=== PATIENT | female | born 1990 | race Hispanic/Latino ===

== ENCOUNTER 2021-12-28 07:07 | Observation (INO) | payer BC ==
[~2021-12-28] VITALS: Ht 160 cm; Wt 94.8 kg
[2021-12-28 07:12] VITALS: BP 118/68
[2021-12-28 08:44] LABS: APPEARANCE,URINE CLOUDY (CLEAR); BILIRUBIN,URINE NEGATIVE (NEGATIVE); COLOR,URINE LIGHT-YELLOW (YELLOW); GLUCOSE, URINE (UA) NEGATIVE (NEGATIVE); KETONES,URINE NEGATIVE (NEGATIVE); LEUKOCYTE ESTERASE ,URINE 250 Leu/uL (NEGATIVE); NITRATE,URINE NEGATIVE (NEGATIVE); OCCULT BLOOD,URINE NEGATIVE (NEGATIVE); PH,URINE 6.5 (5.0-8.0); PROTEIN,URINE NEGATIVE (NEGATIVE); UROBILINOGEN,URINE 0.2 mg/dL (0.2-1.0)
[2021-12-28 09:08] LABS: BACTERIA,URINE MOD /HPF (None Seen); MUCUS,URINE RARE LPF (None Seen); RBC,URINE 0-1 /HPF (0-1); SQUAMOUS EPITHELIAL CELL,UR MANY /HPF (0-2)
[2021-12-28] MEDS ORDERED: PROMETHAZINE HCL 25 MG/ML 1ML AMPULE IM ONE (09:30)
[2021-12-28] MEDS ORDERED: BUTALB/ACETAMINOPHEN/CAFFEINE 1 EACH TABLET PO SCH (09:30)
== END 2021-12-28 10:08 | disposition home or self-care (01) ==
LOC: EDH 07:07 → LDH 07:08
PROVIDERS: ADMIT Obstetrics & Gynecology; ATTEND Obstetrics & Gynecology
DX: O26.893 Other specified pregnancy related conditions, third trimester (principal); Z20.822 Contact with and (suspected) exposure to COVID-19; R51.9 Headache, unspecified; Z3A.34 34 weeks gestation of pregnancy
CPT/HCPCS: 96372; 87088; 87804 ×2; 81001; 87635; G0378 ×2; C9803; J2550

== ENCOUNTER 2022-01-13 16:19 | Observation (INO) | payer BC ==
[~2022-01-13] VITALS: Ht 160 cm; Wt 97.1 kg
[2022-01-13 16:25] VITALS: BP 138/89
[2022-01-13 17:15] LABS: BASOPHILS % (AUTO) 0.2 % (0.0-5.0); EOSINOPHILS % (AUTO) 0.3 % (0.0-8.0); HEMATOCRIT 28.1 % (36-48); LYMPHOCYTES % (AUTO) 19.2 % (21.0-51.0); MEAN CORPUSCULAR HEMOGLOBIN 30.7 pg (27.0-33.0); MEAN CORPUSCULAR HGB CONC 34.9 g/dL (32.0-36.0); MEAN CORPUSCULAR VOLUME 88.1 fL (79-99); MONOCYTES % (AUTO) 7.6 % (3.0-13.0); NEUTROPHILS % (AUTO) 72.3 % (40.0-77.0); PLATELET COUNT (AUTO) 250 K/uL (130-400); RED BLOOD CELL COUNT(AUTO) 3.19 MIL/uL (4.00-5.50); RED CELL DISTRIBUTION WIDTH 12.6 % (11.0-15.5); WHITE BLOOD COUNT (AUTO) 11.5 K/uL (4.8-10.8)
[2022-01-13 17:16] LABS: APPEARANCE,URINE CLEAR (CLEAR); BILIRUBIN,URINE NEGATIVE (NEGATIVE); COLOR,URINE COLORLESS (YELLOW); GLUCOSE, URINE (UA) NEGATIVE (NEGATIVE); KETONES,URINE NEGATIVE (NEGATIVE); LEUKOCYTE ESTERASE ,URINE NEGATIVE Leu/uL (NEGATIVE); NITRATE,URINE NEGATIVE (NEGATIVE); OCCULT BLOOD,URINE NEGATIVE (NEGATIVE); PROTEIN,URINE NEGATIVE (NEGATIVE); UROBILINOGEN,URINE 0.2 mg/dL (0.2-1.0)
[2022-01-13 17:29] LABS: CREATININE 0.8 mg/dL (0.5-1.5); POTASSIUM 3.6 mmol/L (3.5-5.1)
[2022-01-13 17:30] LABS: INR 0.93 (0.85-1.15); PROTHROMBIN TIME 9.5 SEC (9.6-11.6)
[2022-01-13 17:32] LABS: PARTIAL THROMBOPLASTIN TIME 26.8 SEC (26.3-35.5)
[2022-01-13 17:33] LABS: ALBUMIN 2.3 g/dL (3.5-5.0); TOTAL PROTEIN, SERUM 6.5 g/dL (6.0-8.3); URIC ACID 3.9 mg/dL (2.6-7.2)
== END 2022-01-13 18:55 | disposition home or self-care (01) ==
LOC: EDH 16:19 → LDH 16:20
PROVIDERS: ADMIT Obstetrics & Gynecology; ATTEND Obstetrics & Gynecology
DX: O14.93 Unspecified pre-eclampsia, third trimester (principal); Z3A.36 36 weeks gestation of pregnancy
CPT/HCPCS: 59025; 84550; 80053; 85025; 85384; 85610; 85730; 81003; 36415; 76805; G0378 ×2; G0379

== ENCOUNTER 2022-01-20 16:16 | Observation (INO) | payer BC ==
[~2022-01-20] VITALS: Ht 160 cm; Wt 99.8 kg
[2022-01-20 17:01] LABS: APPEARANCE,URINE CLEAR (CLEAR); BILIRUBIN,URINE NEGATIVE (NEGATIVE); COLOR,URINE COLORLESS (YELLOW); GLUCOSE, URINE (UA) NEGATIVE (NEGATIVE); KETONES,URINE NEGATIVE (NEGATIVE); LEUKOCYTE ESTERASE ,URINE NEGATIVE Leu/uL (NEGATIVE); NITRATE,URINE NEGATIVE (NEGATIVE); OCCULT BLOOD,URINE SMALL (NEGATIVE); PH,URINE 6.5 (5.0-8.0); PROTEIN,URINE NEGATIVE (NEGATIVE); UROBILINOGEN,URINE 0.2 mg/dL (0.2-1.0)
[2022-01-20 17:04] LABS: MUCUS,URINE RARE LPF (None Seen); RBC,URINE 0-1 /HPF (0-1); SQUAMOUS EPITHELIAL CELL,UR RARE /HPF (0-2)
[2022-01-20 17:34] LABS: BASOPHILS % (AUTO) 0.3 % (0.0-5.0); EOSINOPHILS % (AUTO) 0.3 % (0.0-8.0); HEMATOCRIT 25.8 % (36-48); LYMPHOCYTES % (AUTO) 20.3 % (21.0-51.0); MEAN CORPUSCULAR HEMOGLOBIN 30.2 pg (27.0-33.0); MEAN CORPUSCULAR HGB CONC 34.1 g/dL (32.0-36.0); MEAN CORPUSCULAR VOLUME 88.7 fL (79-99); MONOCYTES % (AUTO) 7.3 % (3.0-13.0); NEUTROPHILS % (AUTO) 71.3 % (40.0-77.0); PLATELET COUNT (AUTO) 244 K/uL (130-400); RED BLOOD CELL COUNT(AUTO) 2.91 MIL/uL (4.00-5.50); RED CELL DISTRIBUTION WIDTH 12.9 % (11.0-15.5); WHITE BLOOD COUNT (AUTO) 11.1 K/uL (4.8-10.8)
[2022-01-20 17:43] LABS: CREATININE 0.8 mg/dL (0.5-1.5); POTASSIUM 3.6 mmol/L (3.5-5.1)
[2022-01-20 17:45] LABS: INR 0.93 (0.85-1.15); PROTHROMBIN TIME 9.5 SEC (9.6-11.6)
[2022-01-20 17:46] LABS: PARTIAL THROMBOPLASTIN TIME 26.8 SEC (26.3-35.5)
[2022-01-20 17:48] LABS: ALBUMIN 2.1 g/dL (3.5-5.0); URIC ACID 4.4 mg/dL (2.6-7.2)
[2022-01-20 21:48] VITALS: BP 141/82
[2022-01-20] MEDS ORDERED: CITRIC ACID/SODIUM CITRATE 30 ML UDCUP PO SCH (22:00)
[2022-01-20] MEDS ORDERED: PHARMACY COMMUNICATION MISC SCH (22:00)
[2022-01-20 22:18] VITALS: BP 171/91
[2022-01-20 22:48] VITALS: BP 141/82
[2022-01-20 23:30] VITALS: BP 136/85
[2022-01-21 03:17] VITALS: BP 124/80
[2022-01-21] MEDS ORDERED: PANTOPRAZOLE 40 MG TAB DR PO SCH (09:00)
[2022-01-21 16:56] LABS: CREATININE,SERUM FOR CRCL 0.8 mg/dL (0.6-1.3)
[2022-01-21 16:57] LABS: COLLECTION PERIOD,URINE 24 HR; TOTAL VOLUME 24HRS,URINE 3200 mL
[2022-01-21 17:44] LABS: TPROTEIN TIMED,URINE 4 mg/dL; TPROTEIN U,24HR CALC 128 mg/24HR (0-165)
[2022-01-25] MEDS ORDERED: OMEP20TA2 PO (00:05)
[2022-01-25] MEDS ORDERED: PREN1TAB80 PO (00:05)
== END 2022-01-21 17:00 | disposition home or self-care (01) ==
LOC: LDH 16:16 → WSH 19:55
PROVIDERS: ADMIT Obstetrics & Gynecology; ATTEND Obstetrics & Gynecology
DX: O26.893 Other specified pregnancy related conditions, third trimester (principal); R03.0 Elevated blood-pressure reading, without diagnosis of hypertension; O12.13 Gestational proteinuria, third trimester; O21.2 Late vomiting of pregnancy; Z3A.37 37 weeks gestation of pregnancy; Z79.899 Other long term (current) drug therapy; Z98.890 Other specified postprocedural states
CPT/HCPCS: 59025 ×2; 84550; 80053; 85025; 85384; 85610; 85730; 81001; 36415; 76805; 82575; 84156; G0378 ×25; G0379

== ENCOUNTER 2022-02-03 22:36 | Emergency (ER) | payer BC ==
[~2022-02-03] VITALS: Ht 160 cm; Wt 93.0 kg
[~2022-02-03 22:36] MED LIST: ACET-2079 PO; DOCU-116 PO; IBUP-2077 PO; IRON1CAP PO; OMEP20TA2 PO; PREN1TAB80 PO
[2022-02-03] MEDS ORDERED: ACETAMINOPHEN WITH CODEINE 1 TAB TAB PO ONE (23:00)
[2022-02-03 23:06] LABS: BASOPHILS % (AUTO) 0.3 % (0.0-5.0); EOSINOPHILS % (AUTO) 0.6 % (0.0-8.0); HEMATOCRIT 23.9 % (36-48); LYMPHOCYTES % (AUTO) 11.9 % (21.0-51.0); MEAN CORPUSCULAR HEMOGLOBIN 29.8 pg (27.0-33.0); MEAN CORPUSCULAR HGB CONC 33.9 g/dL (32.0-36.0); MEAN CORPUSCULAR VOLUME 87.9 fL (79-99); MONOCYTES % (AUTO) 6.3 % (3.0-13.0); NEUTROPHILS % (AUTO) 75.2 % (40.0-77.0); NUCLEATED RED BLOOD CELLS 0.2 % (0.0-0.19); PLATELET COUNT (AUTO) 332 K/uL (130-400); RED BLOOD CELL COUNT(AUTO) 2.72 MIL/uL (4.00-5.50); RED CELL DISTRIBUTION WIDTH 13.2 % (11.0-15.5); WHITE BLOOD COUNT (AUTO) 16.2 K/uL (4.8-10.8)
[2022-02-03 23:24] LABS: CREATININE 0.8 mg/dL (0.5-1.5)
[2022-02-03] MEDS ORDERED: LIDO1ADH78 TP (23:26)
[2022-02-03] MEDS ORDERED: 0.9%NACL 1000ML 1,000 ML IV ONE (23:30)
[2022-02-03] MEDS ORDERED: LIDOCAINE 5% TOPICAL PATCH TP ONE (23:30)
[2022-02-03 23:31] LABS: TOTAL PROTEIN, SERUM 6.9 g/dL (6.0-8.3)
[2022-02-03 23:39] VITALS: BP 128/83
== END 2022-02-03 23:52 | disposition home or self-care (01) ==
LOC: EDH 22:36
DX: O86.00 Infection of obstetric surgical wound, unspecified (principal); O90.89 Other complications of the puerperium, not elsewhere classified; G89.18 Other acute postprocedural pain; Z98.890 Other specified postprocedural states; Z79.1 Long term (current) use of non-steroidal anti-inflammatories (NSAID)
CPT/HCPCS: 36415; 80053; 85025

== ENCOUNTER 2022-02-08 14:01 | Inpatient (IN) | payer BC ==
[~2022-02-08] VITALS: Ht 160 cm; Wt 90.3 kg
[~2022-02-08 14:01] MED LIST changes: +LIDO1ADH78 TP
[2022-02-08 15:00] VITALS: BP 121/89
[2022-02-08 15:39] LABS: BASOPHILS % (AUTO) 0.5 % (0.0-5.0); EOSINOPHILS % (AUTO) 0.5 % (0.0-8.0); HEMATOCRIT 27.6 % (36-48); LYMPHOCYTES % (AUTO) 17.1 % (21.0-51.0); MEAN CORPUSCULAR HEMOGLOBIN 28.8 pg (27.0-33.0); MEAN CORPUSCULAR HGB CONC 32.2 g/dL (32.0-36.0); MEAN CORPUSCULAR VOLUME 89.3 fL (79-99); NEUTROPHILS % (AUTO) 70.9 % (40.0-77.0); PLATELET COUNT (AUTO) 663 K/uL (130-400); RED BLOOD CELL COUNT(AUTO) 3.09 MIL/uL (4.00-5.50); RED CELL DISTRIBUTION WIDTH 13.2 % (11.0-15.5); WHITE BLOOD COUNT (AUTO) 11.8 K/uL (4.8-10.8)
[2022-02-08 16:12] VITALS: BP 142/78
[2022-02-08] MEDS ORDERED: MEPERIDINE-PF 75 MG/ML SYG IM PRN (17:00)
[2022-02-08] MEDS ORDERED: ACETAMINOPHEN 325 MG TAB PO PRN (17:00)
[2022-02-08] MEDS ORDERED: PROMETHAZINE HCL 25 MG/ML 1ML AMPULE IM PRN (17:00)
[2022-02-08] MEDS: ACETAMINOPHEN WITH CODEINE 1 TAB TAB PO PRN (17:34)
[2022-02-08 19:31] VITALS: BP 129/78
[2022-02-08] MEDS: DOCUSATE SODIUM 100 MG CAP PO SCH (20:27)
[2022-02-08 22:50] VITALS: BP 118/71
[2022-02-09] MEDS: ACETAMINOPHEN WITH CODEINE 1 TAB TAB PO PRN (01:52)
[2022-02-09 03:13] VITALS: BP 116/68
[2022-02-09 07:33] VITALS: BP 127/71
[2022-02-09] MEDS: IBUPROFEN 800 MG TAB PO PRN (09:21)
[2022-02-09] MEDS: DOCUSATE SODIUM 100 MG CAP PO SCH ×2 (09:21→20:30)
[2022-02-09 11:21] VITALS: BP 121/65
[2022-02-09 16:08] VITALS: BP 141/93
[2022-02-09] MEDS ORDERED: MORPHINE 4 MG SYG IVP PRN (17:00)
[2022-02-09 19:30] VITALS: BP 133/74
[2022-02-09 23:05] VITALS: BP 125/71
[2022-02-10] MEDS: IBUPROFEN 800 MG TAB PO PRN ×3 (01:32→18:24)
[2022-02-10 03:00] VITALS: BP 123/73
[2022-02-10 08:00] VITALS: BP 119/75
[2022-02-10] MEDS: DOCUSATE SODIUM 100 MG CAP PO SCH ×2 (09:03→21:06)
[2022-02-10] MEDS ORDERED: DEXTROSE 5%-LACTATED RINGERS 1,000 ML IV SCH (09:30)
[2022-02-10 11:50] VITALS: BP 115/67
[2022-02-10 16:00] VITALS: BP 121/79
[2022-02-10 19:50] VITALS: BP 130/93
[2022-02-10 23:04] VITALS: BP 140/79
[2022-02-11 03:11] VITALS: BP 126/74
[2022-02-11 08:00] VITALS: BP 127/77
[2022-02-11] MEDS: DOCUSATE SODIUM 100 MG CAP PO SCH ×2 (08:48→22:57)
[2022-02-11] MEDS: IBUPROFEN 800 MG TAB PO PRN (08:50)
[2022-02-11 11:31] VITALS: BP 125/76
[2022-02-11 16:00] VITALS: BP 125/90
[2022-02-11 19:40] VITALS: BP 124/80
[2022-02-11 23:02] VITALS: BP 121/70
[2022-02-12 05:30] VITALS: BP 117/64
[2022-02-12 07:38] VITALS: BP 128/74
[2022-02-12] MEDS: DOCUSATE SODIUM 100 MG CAP PO SCH ×2 (09:43→21:20)
[2022-02-12] MEDS: IBUPROFEN 800 MG TAB PO PRN (09:45)
[2022-02-12 12:08] VITALS: BP 132/76
[2022-02-12 20:25] VITALS: BP 125/71
== END 2022-02-12 21:45 | disposition home health service (06) | DRG 776 ==
LOC: EDH 14:01 → WSH 14:15 → OBSVTOIN 14:15
PROVIDERS: ADMIT Obstetrics & Gynecology; ATTEND Obstetrics & Gynecology
DX: O90.0 Disruption of cesarean delivery wound (principal); E66.9 Obesity, unspecified; Z68.35 Body mass index [BMI] 35.0-35.9, adult
CPT/HCPCS: 36415; 82948; 85025; G0378; J2175; J2270; J2550

== ENCOUNTER → 2022-02-14 | Outpatient (CLI) | payer BC ==
[~2022-02-14] MED LIST changes: +LIDOCAINE HCL 4% LTA SOL 4 ML VIAL TP ONE
== END | disposition home or self-care (01) ==
LOC: WHH 09:44
PROVIDERS: ATTEND Family Medicine
DX: O90.0 Disruption of cesarean delivery wound (principal); O99.215 Obesity complicating the puerperium; E66.01 Morbid (severe) obesity due to excess calories; O14.05 Mild to moderate pre-eclampsia, complicating the puerperium; Z79.1 Long term (current) use of non-steroidal anti-inflammatories (NSAID); Z79.899 Other long term (current) drug therapy
CPT/HCPCS: 97605; A4450

== ENCOUNTER → 2022-02-28 | Outpatient (CLI) | payer BC | END | disposition home or self-care (01) | LOC: WHH 09:36 | PROVIDERS: ATTEND Family Medicine | DX: O90.0 Disruption of cesarean delivery wound (principal); O14.05 Mild to moderate pre-eclampsia, complicating the puerperium; O99.215 Obesity complicating the puerperium; E66.01 Morbid (severe) obesity due to excess calories; Z68.35 Body mass index [BMI] 35.0-35.9, adult; Z79.1 Long term (current) use of non-steroidal anti-inflammatories (NSAID); Z79.899 Other long term (current) drug therapy | CPT/HCPCS: 99214; A6248; A4450 ==

== ENCOUNTER → 2022-03-07 | Outpatient (CLI) | payer BC | END | disposition home or self-care (01) | LOC: WHH 09:30 | PROVIDERS: ATTEND Family Medicine | DX: O90.0 Disruption of cesarean delivery wound (principal); O14.05 Mild to moderate pre-eclampsia, complicating the puerperium; O99.215 Obesity complicating the puerperium; E66.01 Morbid (severe) obesity due to excess calories; Z68.35 Body mass index [BMI] 35.0-35.9, adult; Z79.1 Long term (current) use of non-steroidal anti-inflammatories (NSAID); Z79.899 Other long term (current) drug therapy | CPT/HCPCS: 99214 ==

== ENCOUNTER → 2022-03-14 | Outpatient (CLI) | payer BC | END | disposition home or self-care (01) | LOC: WHH 09:37 | PROVIDERS: ATTEND Family Medicine | DX: T81.31XD Disruption of external operation (surgical) wound, not elsewhere classified, subsequent encounter (principal); E66.01 Morbid (severe) obesity due to excess calories; Z68.35 Body mass index [BMI] 35.0-35.9, adult; Z79.1 Long term (current) use of non-steroidal anti-inflammatories (NSAID); Z79.899 Other long term (current) drug therapy; Y83.8 Other surgical procedures as the cause of abnormal reaction of the patient, or of later complication, without mention of misadventure at the time of the procedure | CPT/HCPCS: 99214 ==

== ENCOUNTER → 2022-03-24 | Outpatient (CLI) | payer BC | END | disposition home or self-care (01) | LOC: WHH 08:15 | PROVIDERS: ATTEND Family Medicine | DX: T81.31XD Disruption of external operation (surgical) wound, not elsewhere classified, subsequent encounter (principal); E66.01 Morbid (severe) obesity due to excess calories; Z68.35 Body mass index [BMI] 35.0-35.9, adult; Z79.1 Long term (current) use of non-steroidal anti-inflammatories (NSAID); Z79.899 Other long term (current) drug therapy; Y83.8 Other surgical procedures as the cause of abnormal reaction of the patient, or of later complication, without mention of misadventure at the time of the procedure | CPT/HCPCS: 17250; A6248; A4450 ==

== ENCOUNTER → 2022-03-31 | Outpatient (CLI) | payer BC ==
[~2022-03-31] MED LIST changes: -LIDOCAINE HCL 4% LTA SOL 4 ML VIAL TP ONE
== END | disposition home or self-care (01) ==
LOC: WHH 08:20
PROVIDERS: ATTEND Family Medicine
DX: T81.31XD Disruption of external operation (surgical) wound, not elsewhere classified, subsequent encounter (principal); S31.109D Unspecified open wound of abdominal wall, unspecified quadrant without penetration into peritoneal cavity, subsequent encounter; E66.01 Morbid (severe) obesity due to excess calories; Z68.35 Body mass index [BMI] 35.0-35.9, adult; Z79.1 Long term (current) use of non-steroidal anti-inflammatories (NSAID); Z79.899 Other long term (current) drug therapy; Y83.8 Other surgical procedures as the cause of abnormal reaction of the patient, or of later complication, without mention of misadventure at the time of the procedure; X58.XXXD Exposure to other specified factors, subsequent encounter
CPT/HCPCS: 99214

== ENCOUNTER 2024-08-29 08:36 | Observation (INO) | payer BC ==
[~2024-08-29] VITALS: Ht 160 cm; Wt 93.0 kg
[2024-08-29 09:03] LABS: BASOPHILS # (AUTO) 0.06 K/uL (0.00-0.20); BASOPHILS % (AUTO) 0.9 % (0.0-5.0); EOSINOPHILS # (AUTO) 0.05 K/uL (0.00-0.70); EOSINOPHILS % (AUTO) 0.8 % (0.0-8.0); HEMATOCRIT 34.6 % (36-48); IMMATURE GRANULOCYTE ABSOLUTE 0.02 K/uL (0-1); LYMPHOCYTES # (AUTO) 1.6 K/uL (1.0-4.8); LYMPHOCYTES % (AUTO) 25.2 % (21.0-51.0); MEAN CORPUSCULAR HEMOGLOBIN 29.6 pg (27.0-33.0); MEAN CORPUSCULAR HGB CONC 33.2 g/dL (32.0-36.0); MEAN CORPUSCULAR VOLUME 88.9 fL (79-99); MONOCYTES # (AUTO) 0.5 K/uL (0.1-1.0); MONOCYTES % (AUTO) 7.9 % (3.0-13.0); NEUTROPHILS # (AUTO) 4.1 K/uL (1.8-7.7); NEUTROPHILS % (AUTO) 64.9 % (40.0-77.0); PLATELET COUNT (AUTO) 359 K/uL (130-400); RED BLOOD CELL COUNT(AUTO) 3.89 MIL/uL (4.00-5.50); RED CELL DISTRIBUTION WIDTH 13.4 % (11.0-15.5); WHITE BLOOD COUNT (AUTO) 6.3 K/uL (4.8-10.8)
[2024-08-29 09:09] LABS: APPEARANCE,URINE CLEAR (CLEAR); BILIRUBIN,URINE NEGATIVE (NEGATIVE); COLOR,URINE COLORLESS (YELLOW); GLUCOSE, URINE (UA) NEGATIVE (NEGATIVE); KETONES,URINE NEGATIVE (NEGATIVE); LEUKOCYTE ESTERASE ,URINE NEGATIVE Leu/uL (NEGATIVE); NITRATE,URINE NEGATIVE (NEGATIVE); OCCULT BLOOD,URINE NEGATIVE (NEGATIVE); PH,URINE 6.5 (5.0-8.0); PROTEIN,URINE NEGATIVE (NEGATIVE); UROBILINOGEN,URINE 0.2 mg/dL (0.2-1.0)
[2024-08-29 09:12] LABS: AMPHET/METH SCREEN,URINE NEGATIVE (NEGATIVE); BARBITURATE SCREEN, URINE NEGATIVE (NEGATIVE); BENZODIAZEPINES SCREEN,URINE NEGATIVE (NEGATIVE); CANNABINOID SCREEN,URINE NEGATIVE (NEGATIVE); COCAINE SCREEN,URINE NEGATIVE (NEGATIVE); OPIATE SCREEN,URINE NEGATIVE (NEGATIVE); PHENCYCLIDINE SCREEN,URINE NEGATIVE (NEGATIVE)
[2024-08-29 09:13] LABS: ADD UA MICROSCOPIC NO
[2024-08-29 09:18] LABS: INR 1.03 (0.85-1.15); PROTHROMBIN TIME 10.9 SEC (9.6-11.6)
[2024-08-29 09:19] LABS: PARTIAL THROMBOPLASTIN TIME 30.8 SEC (26.3-35.5)
[2024-08-29 09:20] LABS: CREATININE 0.8 mg/dL (0.5-1.0); MAGNESIUM 1.8 mg/dL (1.80-2.40); POTASSIUM 4.3 mmol/L (3.5-5.1)
[2024-08-29 09:29] LABS: B-TYPE NATRIURETIC PEPTIDE 47 pg/mL (0-100)
--- NOTE | 2024-08-29 09:43 | EKG ---
[facility] Test Date: 2024-08-29 Test Time: 08:54:28 Pat Name: RUBIA FARLEY Department: [facility] Room: ED Gender: F Mobile Marketing Specialist: [id number] : 1990 Requested By: DEISI MUNGUIA Order Number: [id number] Reading MD: Pritesh Holland Measurements Intervals Theodore Rate: 64 P: 45 MN: 151 QRS: 56 QRSD: 90 T: 36 QT: 413 QTc: 427 Interpretive Statements Sinus rhythm No previous ECG available for comparison Electronically Signed On 08-29-2024 16:56:33 CDT by Pritesh Holland Please click the below link to view image of tracing.
--- NOTE | 2024-08-29 10:25 | ERN ---
General Chief Complaint: Chest Wall Pain Stated Complaint: CHEST WALL PAIN ON INSPIRATION Time Seen by MD: 08:44 Source: patient History of Present Illness Initial Comments Patient is a 34-year-old female coming in complaining of left-sided chest pain. Patient states that the chest pain began yesterday. She does attributes the chest pain to ongoing stress and heavy workload. She states that she has been drinking more than the usual coffee. She does not has a history of CAD hypertension or diabetes. Patient quantifies the pain at 2/10 in his exacerbated with deep inspiration. 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 Reported Medications Acetaminophen with Codeine (Acetaminophen-Cod #3 Tablet) 1 Each Tablet, 1 EACH PO Q4H PRN for PAIN LEVEL 4 TO 6, #30 TAB 01/29/22 Ibuprofen (Ibuprofen 800 mg Tab) 800 Mg Tab, 800 MG PO Q8H PRN for PAIN, #60 TAB 01/29/22 Iron Amino Acid Chelate/B12/FA (Ferractiv Iron 27 mg Formula) 1 Each Capsule, 1 EACH PO DAILYDINNER, #60 CAP 01/29/22 Docusate Sodium (Colace) 100 Mg Capsule, 100 MG PO BID, #60 CAP 01/29/22 Omeprazole Magnesium (Prilosec Otc) 20 Mg Tablet.dr, 20 MG PO DAILY, TAB 01/25/22 Vits W-Ca,Fe,FA(<1Mg) ( Vitamins) 1 Each Tablet, 1 EACH PO DAILY, TAB 01/25/22 Past Medical History Past Medical History: No Pertinent History Past Surgical History: Surgical History Other: CHIN Female( History) : 1 Para: 0 Aborts: 0 ROS Dictation CONSTITUTIONAL: No chills, no fever, no weakness, no diaphoresis, no malaise. HEAD/FACE: No signs of trauma. EENT: No eye pain, no blurred vision, no tearing, no double vision, no ear pain, no ear discharge, no nose pain, no nasal congestion, no throat pain, no throat swelling, no mouth pain. RESPIRATORY: No cough, no orthopnea, SOB, no stridor, no wheezing. CARDIOVASCULAR: chest pain, no edema, no palpitations, no syncope. GASTROINTESTINAL/ABDOMINAL: No abdominal pain, no constipation, no diarrhea, no nausea, no vomiting. GENITOURINARY: No abnormal discharge, no dysuria, no frequent urination, no hematuria. No complaints of pain in the genitals. MUSCULOSKELETAL: No back pain, no gout, no joint pain, no joint swelling, no muscle pain, no muscle stiffness, no neck pain. INTEGUMENTARY: No change in color, no change in hair/nails, no dryness, no lesion, no lumps, no rash. NEUROLOGICAL/PSYCH: No anxiety, not depressed, no emotional problem, no headache, no numbness, no pre-existing deficit, no history of seizures, no tremors, no weakness. HEMATOLOGIC/LYMPHATIC: Not anemic, no history of blood clots, no apparent bleeding, no bruising, glands not swollen. All Systems Negative, Except as Noted. Physical Exam Physical Exam Dictation VITAL SIGNS: Reviewed. GENERAL APPEARANCE: Alert, oriented x3, no acute distress, obese. HEAD AND FACE: Non-traumatic. EYES: PERRL, pink conjunctivas, eyelid no trauma, anterior chamber clear. EARS: Pinnas intact and no signs of trauma or erythema. Ear canals clear and no discharge. TMs no erythema. NOSE: No discharge, no bleeding. OROPHARYNX: Mouth normal, teeth no caries, tongue pink. Pharynx clear, no erythema. Tonsils no exudates, no abscesses noted. Mucous membrane moist. NECK: Supple, non-tender, no thyromegaly, no masses, no JVD, no bruits. BREAST: Deferred. CHEST: No tenderness, no crepitus, no paradoxical movement, no retractions. LUNGS: Clear, well-ventilated, symmetric, no rales, no wheezing, no rhonchi, no stridor, good breath sounds bilaterally. HEART: Regular rate, regular rhythm, no murmur, no gallops. VASCULAR: No peripheral edema. ABDOMEN: Soft, positive bowel sounds, nondistended, no guarding, nontender, no rebound, no masses no hepatomegaly, no splenomegaly, no Ash's sign, no hernias. RECTAL: Deferred. GENITAL: Deferred. NEUROLOGICAL: Normal speech, gross motor function intact, gross sensory function intact. MUSCULOSKELETAL: Neck nontender, full range of motion, back nontender, full range of motion. EXTREMITIES: Nontender, full range of motion. SKIN: Color pink, dry, no turgor, no rash, no lacerations, no abrasions, no contusions. LYMPHATICS: Deferred. Results Laboratory and Microbiology Lab and Micro Result Laboratory Tests Test 08/29/24 08:53 08/29/24 08:56 08/29/24 10:25 Urine HCG, Qualitative NEGATIVE (NEGATIVE) White Blood Count 6.3 K/uL (4.8-10.8) Red Blood Count 3.89 MIL/uL (4.00-5.50) L Hemoglobin 11.5 g/dL (12.0-16.0) L Hematocrit 34.6 % (36-48) L Mean Corpuscular Volume 88.9 fL (79-99) Mean Corpuscular Hemoglobin 29.6 pg (27.0-33.0) Mean Corpuscular Hemoglobin Concent 33.2 g/dL (32.0-36.0) Red Cell Distribution Width 13.4 % (11.0-15.5) Platelet Count 359 K/uL (130-400) Mean Platelet Volume 9.2 fL (7.5-10.5) Immature Granulocyte % (Auto) 0.3 % (0-1) Neutrophils (%) (Auto) 64.9 % (40.0-77.0) Lymphocytes (%) (Auto) 25.2 % (21.0-51.0) Monocytes (%) (Auto) 7.9 % (3.0-13.0) Eosinophils (%) (Auto) 0.8 % (0.0-8.0) Basophils (%) (Auto) 0.9 % (0.0-5.0) Neutrophils # (Auto) 4.1 K/uL (1.8-7.7) Lymphocytes # (Auto) 1.6 K/uL (1.0-4.8) Monocytes # (Auto) 0.5 K/uL (0.1-1.0) Eosinophils # (Auto) 0.05 K/uL (0.00-0.70) Basophils # (Auto) 0.06 K/uL (0.00-0.20) Absolute Immature Granulocyte (auto 0.02 K/uL (0-1) Nucleated Red Blood Cells 0.0 % (0.0-0.19) Prothrombin Time 10.9 SEC (9.6-11.6) Prothromb Time International Ratio 1.03 (0.85-1.15) Activated Partial Thromboplast Time 30.8 SEC (26.3-35.5) Urine Color COLORLESS (YELLOW) Urine Appearance CLEAR (CLEAR) Urine pH 6.5 (5.0-8.0) Urine Specific [place] 1.002 (1.001-1.031) Urine Protein NEGATIVE mg/dL (NEGATIVE) Urine Glucose (UA) NEGATIVE mg/dL (NEGATIVE) Urine Ketones NEGATIVE mg/dL (NEGATIVE) Urine Occult Blood NEGATIVE (NEGATIVE) Urine Nitrate NEGATIVE (NEGATIVE) Urine Bilirubin NEGATIVE mg/dL (NEGATIVE) Urine Urobilinogen 0.2 mg/dL (0.2-1.0) Urine Leukocyte Esterase NEGATIVE Melinda/uL Sodium Level 141 mmol/L (136-145) Potassium Level 4.3 mmol/L (3.5-5.1) Chloride Level 105 mmol/L (101-111) Carbon Dioxide Level 30 mmol/L (21-32) Blood Urea Nitrogen 10 mg/dL (7-18) Creatinine 0.8 mg/dL (0.5-1.0) Glomerular Filtration Rate Calc 100 mL/min (>90) Random Glucose 79 mg/dL (70-105) Total Calcium 8.9 mg/dL (8.5-10.1) Magnesium Level 1.80 mg/dL (1.80-2.40) Total Creatine Kinase 111 U/L (21-232) Troponin I High Sensitivity 7 ng/L (4-50) 6 ng/L (4-50) B-Type Natriuretic Peptide 47 pg/mL (0-100) Urine Opiates Screen NEGATIVE (NEGATIVE) Urine Barbiturates Screen NEGATIVE (NEGATIVE) Urine Phencyclidine Screen NEGATIVE (NEGATIVE) Urine Amphetamines Screen NEGATIVE (NEGATIVE) Urine Benzodiazepines Screen NEGATIVE (NEGATIVE) Urine Cocaine Screen NEGATIVE (NEGATIVE) Urine Marijuana (THC) Screen NEGATIVE (NEGATIVE) Labs Reviewed?: Yes EKG/XRAY/US/CT/MRI EKG Comment 08/29/2024 time 8:54 a.m. Ventricular rate 64 Sinus rhythm [place] [address] wave elevation or depression X-RAY Comment [id number] [address] IMAGING REPORT Signed PATIENT: RUBIA FARLEY MR#: [id number] : 1990 SEX: F AGE: 34 LOCATION: [facility] ORDER 7 STATUS: [facility] ER REPORT#: [id number] SERVICE 5 REASON: cp ORDERING PHYSICIAN: DEISI MUNGUIA MD PROCEDURE: CXR1VW - CHEST 1VW CHEST 1VW HISTORY: Chest pain COMPARISON: None FINDINGS: A frontal projection of the chest was obtained. No acute pulmonary infiltrates is seen. The heart is borderline enlarged. Prominent interstitial markings are seen. No evidence of aortic calcification is seen. IMPRESSION: 1. No acute pulmonary infiltrate is seen. DICTATED BY: MISTY OLIVARES MD DATE: 08/29/241044 ELECTRONICALLY SIGNED BY: MISTY OLIVARES MD DATE: 08/29/241047 MDM MDM: Differential diagnosis: Chest pain, Rationale: Tests considered and ordered secondary to shared decision making include: Previous outside records reviewed: Old ER visits. Risk of complication and/or morbidity or mortality of patient management: None Medications-Per medication reconciliation Need for hospitalization: Patient does not meet criteria for hospitalization. Need for emergency major/minor surgery: No There are no social concerns with this patient. Prescription drug management Prescriptions will include symptomatic care Patient's prior external medical records from other ER visits were reviewed by me as indicated. Prior testing and results from previous visits were reviewed. Prior tests were taken into account with medical decision making and resource utilization, independent historian/historians were used to obtain complete medical history. I independently interpreted the test that were performed, results were reviewed by me and considered findings on radiology if ordered. Medical management and examination interpretation discussions were had by me wit h other qualified healthcare professionals as indicated for the patient's care. Patient is a 34-year-old female coming in to be evaluated chest pain. Per patient this has been ongoing for two days. Due to patient's ongoing chest pain patient will be admitted under the care of hospitalist group for ongoing management. ED Course Orders Procedure Category Date Status Time Cbc With Differential LAB 08/29/24 Complete 08:46 Prothrombin Time With LAB 08/29/24 Complete INR 08:46 B-Type Natriuretic LAB 08/29/24 Complete Peptide 08:46 Chest 1vw RAD 08/29/24 Resulted 08:46 12 Lead Ekg Tracing- EKG 08/29/24 Complete Technical 08:46 Magnesium LAB 08/29/24 Complete 08:46 Creatine Kinase, Total LAB 08/29/24 Complete 08:46 Troponin I High LAB 08/29/24 Complete Sensitivity 08:46 Urinalysis Profile LAB 08/29/24 Complete 08:46 Partial LAB 08/29/24 Complete Thromboplastin Time 08:46 Basic Metabolic Panel LAB 08/29/24 Complete 08:46 Drug Screen Urine LAB 08/29/24 Complete 08:46 ,Urine Test LAB 08/29/24 Complete 09:06 Troponin I High LAB 08/29/24 Complete Sensitivity 10:08 Pantoprazole 40mg Inj PHA 08/29/24 Complete (Protonix 40mg Inj 10:30 Ondansetron 4mg Inj PHA 08/29/24 Complete (Zofran 4mg Inj) 10:30 Lidocaine Hcl 2% PHA 08/29/24 Complete Viscous (Lidocaine Hcl 10:30 Mag/Alum/Simeth 30ml PHA 08/29/24 Complete (Maalox Plus 30ml) 10:30 Ketorolac PHA 08/29/24 Complete Tromethamine 30mg/Ml 12:00 Nitroglycerin 0.4mg PHA 08/29/24 In Process Sl Tab (Nitrostat) 12:30 Current Medications Medications (Trade) Dose Ordered Sig/Lisette Route PRN Reason Start Time Stop Time Status Last Admin Dose Admin Al Hydroxide/Mg Hydroxide (MAALox PLUS 30ML) 30 ml ONCE ONCE PO 08/29/24 10:30 08/29/24 10:31 DC 08/29/24 11:09 Ketorolac Tromethamine (toRADol) 30 mg ONCE ONCE IVP 08/29/24 12:00 08/29/24 12:01 DC 08/29/24 11:56 Lidocaine HCl (Lidocaine HCl 2% Viscous) 10 ml ONCE ONCE PO 08/29/24 10:30 08/29/24 10:31 DC 08/29/24 11:09 Nitroglycerin (Nitrostat) 0.4 mg AD PRN SL CHEST PAIN 08/29/24 12:30 09/28/24 12:29 08/29/24 12:34 Ondansetron HCl (zoFRAN 4MG INJ) 4 mg ONCE ONCE IVP 08/29/24 10:30 08/29/24 10:31 DC 08/29/24 11:09 Pantoprazole Sodium (PROTonix 40MG INJ) 40 mg ONCE ONCE IVP 08/29/24 10:30 08/29/24 10:31 DC 08/29/24 11:09 Vital Signs Date Time Temp Pulse Resp B/P (MAP) Pulse Ox O2 Delivery O2 Flow Rate FiO2 08/29/24 11:48 97.3 63 18 115/75 98 Room Air* 0 21 08/29/24 08:50 97.3 61 18 108/68 100 Room Air* 0 08/29/24 08:39 98.1 62 16 115/75 100 Room Air DX & DISP Disposition: Inpatient Decision to Admit Time: 12:39 Departure Impression: Primary Impression: Chest pain Condition: Stable Referrals: LIU PHOENIX MD (PCP) DEISI MUNGUIA MD August 29, 2024 10:25
--- NOTE | 2024-08-29 10:48 | HMCIMG ---
CHEST 1VW HISTORY: Chest pain COMPARISON: None FINDINGS: A frontal projection of the chest was obtained. No acute pulmonary infiltrates is seen. The heart is borderline enlarged. Prominent interstitial markings are seen. No evidence of aortic calcification is seen. IMPRESSION: 1. No acute pulmonary infiltrate is seen.
[2024-08-29] MEDS: PANTOPrazole 40 MG/VIAL IVP ONE (11:09)
[2024-08-29] MEDS: LIDOCAINE HCL 2% VISCOUS 15 ML UDCUP PO ONE (11:09)
[2024-08-29] MEDS: MAG/ALUM/SIMETH 30 ML UDCUP PO ONE (11:09)
[2024-08-29] MEDS: ondanSETRON 4MG INJ IVP ONE (11:09)
[2024-08-29] MEDS: ketOROlac 30MG VIAL (30MG/ML) IVP ONE (11:56)
[2024-08-29] MEDS: NITROGLYCERIN 0.4 MG SL TAB SL PRN (12:34)
--- NOTE | 2024-08-29 13:08 | HP ---
[facility] HISTORY [facility] PHYSICAL Date of Service: August 29, 2024 Time of Service: 13:08 HISTORY OF PRESENT ILLNESS: 34-year-old female with no significant past medical history presented to the hospital secondary to chest pain. Patient complains of midsternal chest pain which started yesterday. Pain is located in the center of the chest and patient describes the pain as sharp in nature. Pain does not radiate and patient denies any paresthesias, shortness of breath, jaw pain, back pain. Patient states bending down causes her pain to get worse and some movements can also worsen the pain. She states she has been lifting her kids at home but denied any heavy strenuous activity. Denied any falls, chest wall trauma, syncopal episode. She denies any previous history of chest pain at rest or with exertion. She also stated that deep inspiration causes her pain to get worse. She takes multivitam ins but denied taking any other medications. Denied any abdominal pain, nausea, vomiting, dysuria. Patient was given Toradol, Maalox, viscous lidocaine, Protonix. After getting the medications patient pain did not resolve. Decision was thereafter made admit patient to the hospital for further evaluation. Labs were notable for white count of 6.3, hemoglobin was 11.5, platelet count was 359k, sodium was 141, potassium was 4.3, creatinine was 0.8, bicarb was 30, troponin was negative x2, BNP was also negative Chest x-ray showed no acute infiltrates. REVIEW OF SYSTEMS CONSTITUTIONAL: Denies fevers, chills, or night sweats. No unintentional weight loss reported. NEUROLOGICAL: Denies headache, amaurosis fugax, motor weakness, sensory deficit, vertigo/spinning sensation, gait abnormalities, or tremors. ENT: No hearing loss, otalgia, otorrhea, rhinitis, rhinorrhea, hoarseness, or sore throat. CARDIOVASCULAR: Positive for chest pain. Denied any shortness of breath, dyspnea on exertion, palpitations PULMONARY: Denies any shortness of breath, cough, phlegm/sputum, hemoptysis, pleuritic chest pain. GASTROINTESTINAL: Denies any type of dysphagia to either liquids or solids. Denies nausea, vomiting, pyrosis, early satiety, abdominal pain, diarrhea, constipation, or changes in stool consistency or caliber. Denies coffee-ground emesis, hematemesis, hematochezia, or melanotic stools. GENITOURINARY: Denies frequency, urgency, nocturia, hematuria or incontinence (Storage/Irritative symptoms.) Low urinary stream, straining to void, urinary intermittency or hesitancy, splitting of the voiding stream, terminal dribbling. ENDOCRINOLOGIC: Denies polyuria, polydipsia, polyphagia or heat/cold intolerances. HEMATOLOGIC: Denies thrombophilia/previous clots, or coagulopathy/bleeding disorders. ONCOLOGIC: Denies personal history of malignancy. DERMATOLOGIC: Denies rashes or pruritus. PSYCHIATRIC: Denies any suicidal or homicidal ideation. Denies hallucinations. PAST MEDICAL HISTORY: No significant past medical history PAST SURGICAL HISTORY: History of x2 PAST SOCIAL HISTORY: Denied any smoking, alcohol, drug use FAMILY HISTORY: Denied any pertinent family history Coded Allergies: No Known Drug Allergies (Unverified Allergy, Unknown, 12/28/21) PHYSICAL EXAM GENERAL APPEARANCE: The patient is awake, alert, and oriented, in no acute cardiopulmonary distress. NEUROLOGICAL: Cranial nerves II-XII grossly intact. Motor is 5/5 in bilateral upper and lower extremities proximal to distal. No sensory deficits. HEENT: Face is symmetric. Pupils are equal and reactive. Extraocular movements are intact. NECK: Supple. No JVD. No thyromegaly. No submental, submandibular, pre- /postauricular, occipital or supraclavicular lymphadenopathy. CHEST: Normal chest expansion. No Telemetry. No tenderness to palpation LUNGS: Absence of any rales, rhonchi or any wheezing. CARDIOVASCULAR: Regular. S1 and S2 normal. No appreciable rubs, murmurs or gallops. ABDOMEN: Soft, nontender, and nondistended. There is no rebound, voluntary guarding, or rigidity. : Deferred. No Correa. EXTREMITIES: Non-edematous and not cyanotic. No clubbing. Good capillary refill. SKIN: No skin breakdown. Vital Sign (Last 24 Hours) 08/29/24 11:48 Temp 97.3 Pulse 63 Resp 18 B/P (MAP) 115/75 Pulse Ox 98 O2 Delivery Room Air* O2 Flow Rate 0 FiO2 21 LABS: Laboratory: Test 08/29/24 10:25 08/29/24 08:56 08/29/24 08:53 Range/Units Troponin I High Sensitivity 6 4-50 ng/L White Blood Count 6.3 4.8-10.8 K/uL Red Blood Count 3.89 L 4.00-5.50 MIL/uL Hemoglobin 11.5 L 12.0-16.0 g/dL Hematocrit 34.6 L 36-48 % Mean Corpuscular Volume 88.9 79-99 fL Mean Corpuscular Hemoglobin 29.6 27.0-33.0 pg Mean Corpuscular Hemoglobin Concent 33.2 32.0-36.0 g/dL Red Cell Distribution Width 13.4 11.0-15.5 % Platelet Count 359 130-400 K/uL Mean Platelet Volume 9.2 7.5-10.5 fL Immature Granulocyte % (Auto) 0.3 0-1 % Neutrophils (%) (Auto) 64.9 40.0-77.0 % Lymphocytes (%) (Auto) 25.2 21.0-51.0 % Monocytes (%) (Auto) 7.9 3.0-13.0 % Eosinophils (%) (Auto) 0.8 0.0-8.0 % Basophils (%) (Auto) 0.9 0.0-5.0 % Neutrophils # (Auto) 4.1 1.8-7.7 K/uL Lymphocytes # (Auto) 1.6 1.0-4.8 K/uL Monocytes # (Auto) 0.5 0.1-1.0 K/uL Eosinophils # (Auto) 0.05 0.00-0.70 K/uL Basophils # (Auto) 0.06 0.00-0.20 K/uL Absolute Immature Granulocyte (auto 0.02 0-1 K/uL Nucleated Red Blood Cells 0.0 0.0-0.19 % Prothrombin Time 10.9 9.6-11.6 SEC Prothromb Time International Ratio 1.03 0.85-1.15 Activated Partial Thromboplast Time 30.8 26.3-35.5 SEC Urine Color COLORLESS YELLOW Urine Appearance CLEAR CLEAR Urine pH 6.5 5.0-8.0 Urine Specific [place] 1.002 1.001-1.031 Urine Protein NEGATIVE NEGATIVE mg/dL Urine Glucose (UA) NEGATIVE NEGATIVE mg/dL Urine Ketones NEGATIVE NEGATIVE mg/dL Urine Occult Blood NEGATIVE NEGATIVE Urine Nitrate NEGATIVE NEGATIVE Urine Bilirubin NEGATIVE NEGATIVE mg/dL Urine Urobilinogen 0.2 0.2-1.0 mg/dL Urine Leukocyte Esterase NEGATIVE NEGATIVE Melinda/uL Sodium Level 141 136-145 mmol/L Potassium Level 4.3 3.5-5.1 mmol/L Chloride Level 105 101-111 mmol/L Carbon Dioxide Level 30 21-32 mmol/L Blood Urea Nitrogen 10 7-18 mg/dL Creatinine 0.8 0.5-1.0 mg/dL Glomerular Filtration Rate Calc 100 >90 mL/min Random Glucose 79 70-105 mg/dL Total Calcium 8.9 8.5-10.1 mg/dL Magnesium Level 1.80 1.80-2.40 mg/dL Total Creatine Kinase 111 21-232 U/L B-Type Natriuretic Peptide 47 0-100 pg/mL Urine Opiates Screen NEGATIVE NEGATIVE Urine Barbiturates Screen NEGATIVE NEGATIVE Urine Phencyclidine Screen NEGATIVE NEGATIVE Urine Amphetamines Screen NEGATIVE NEGATIVE Urine Benzodiazepines Screen NEGATIVE NEGATIVE Urine Cocaine Screen NEGATIVE NEGATIVE Urine Marijuana (THC) Screen NEGATIVE NEGATIVE Urine HCG, Qualitative NEGATIVE NEGATIVE Current Medications Medications (Trade) Dose Ordered Sig/Lisette Route PRN Reason Start Time Stop Time Status Last Admin Dose Admin Famotidine (Pepcid 20mg Vial) 20 mg BID IV 08/29/24 21:00 09/28/24 20:59 UNV Ketorolac Tromethamine (toRADol) 15 mg Q6H PRN IV MODERATE PAIN (4-6) 08/29/24 13:30 09/03/24 13:29 UNV Nitroglycerin (Nitrostat) 0.4 mg AD PRN SL CHEST PAIN 08/29/24 12:30 09/28/24 12:29 08/29/24 12:34 0.4 MG DIAGNOSTICS / RADIOLOGY: [ ] ASSESSMENT: Chest pain likely muscular versus costochondritis POA PLAN: - patient to be admitted to medical-surgical unit with telemetry -in reference to chest pain. Pain likely is muscular versus setting of costochondritis. We will trend troponins q.6 hours to rule out ACS. Addition ally we will check D-dimer to ensure there is no concern for PE. No family history of cardiac disease. Likely cause of chest pain was discussed with the patient but family is requesting consultation with software configuration manager.. Also obtain echocardiogram -check TSH, A1c procaine, CRP -start patient on Toradol for pain control -further orders per hospitalization course. Advanced Care Planning Which of the following were discussed: Hospice care: Yes __ No _x_ Therapeutic options: Yes __ No __ Advance directives: Yes __ No __ Other discussions: Pt is full code Discussed with who?: patient (Patient, family or surrogates) Voluntary nature of this service was explained to the patient? Yes _x_ No __ Amount of time spent: 25 minutes TAY Benson MD, MD August 29, 2024 13:08
[2024-08-29] MEDS ORDERED: ketOROlac 15MG/ML VIAL (15MG/ML) IV PRN (13:30)
[2024-08-29] MEDS ORDERED: acetaMINOPHEN 500 MG TABLET PO PRN (13:30)
[2024-08-29 14:12] LABS: THYROID STIMULATING HORMONE 5.48 uIU/mL (0.36-3.74)
--- NOTE | 2024-08-29 14:42 | NUR ---
DCP: HOME Pt currently lives with landy Dinh [phone] and 2 small children. Pt denied any insecurities with food, fci, and/or utilities. Pt does not have any DME, home health, or provider services. Pt is able to complete ADLs independently. PCP is at [facility]. Pt uses [employer] for any RX needs. At DC pt will return home and family will assist with transportation. Addendum: 08/29/24 at 1445 by SHREYA LOUIS SS Amended: Links added.
--- NOTE | 2024-08-29 16:08 | CONS ---
CONSULT NOTE: CARDIOLOGY Reason for consult: Chest pain HPI/story at presentation: This is a pleasant 34-year-old female with past medical history of depression with complaints of atypical chest pain. Patient was having sharp chest pains that was not associated with dizziness or palpitations etc. Worse with taking a deep breath. Cardiology was consulted for evaluation management Subjective: 08/29/2024 atypical sharp chest pain Past medical history: See below Allergies, Meds See chart Review of systems Review of Systems Constitutional: Negative for chills and fever. HENT: Negative for ear discharge and ear pain. Eyes: Negative for photophobia and discharge. Respiratory: Negative for cough, sputum production and stridor. Cardiovascular: Negative for chest pain and palpitations. Gastrointestinal: Negative for diarrhea and vomiting. Genitourinary: Negative for frequency. Musculoskeletal: Negative for myalgias. Skin: Negative for rash. Neurological: Negative for focal weakness and seizures. Endo/Heme/Allergies: Negative for polydipsia. Psychiatric/Behavioral: Negative for hallucinations. Vitals see chart PHYSICAL EXAMINATION GENERAL: The patient is alert and oriented*3 HEENT: Nonicteric sclerae, non traumatic HEART: Regular rate and rhythm with no murmurs LUNGS: Clear to auscultation bilaterally ABDOMEN: No acute issues, non tender GENITAL, RECTAL: deferred SKIN: No rash NEUROLOGIC: NFND EXTREMITIES: No edema ASSESSMENT CHEST PAIN Atypical Negative troponins no evidence of significant EKG changes Negative D-dimer, normal troponins Negative EKG. CORE MEASURES Not applicable OTHER MEDICAL PROBLEMS Reviewed PLAN 08/27/2024 symptoms are fairly atypical, likely noncardiac in etiology. D-dimer was negative as well. Echocardiogram completed earlier today was also within normal limits. Given manage conservatively. ATTESTATION I was involved substantially in the care of this patient Number and complexity of problems addressed: 1 acute illness with systemic features Amount and or complexity of data Review of prior external note(s) from each unique source: 2+ Ordering of each unique test : 0 Review of the result(s) of each unique test: 2+ Assessment requiring an independent historian(s): No Independent interpretation of test performed by another MD/QHCP/appropriate source (not separately reported) : No Discussion of management or test interpretation with external MD/QHCP/appropriate source (not separately reported) : No Risk status (cardiac, billing related): RACHELLE Siegel MD August 29, 2024 16:08
--- NOTE | 2024-08-29 16:17 | HMCSR ---
APPROVED REPORT EXAM: Two-dimensional and M-mode echocardiogram with Doppler and color Doppler. INDICATION ICD: Chest Pain 2D Dimensions RVDd4.1 cmLVEF(%)58.7 (>50%)LVED Vol(simp.)89.0 mL IVSd0.8 (0.7-1.1cm)FS(%)31 %LVES Vol(simp.)33.0 mL LVDd4.6 (3.8-5.6cm)LA (2D)3.2 (1.6-4.0cm)LVEF(%, simp.)63 % PWd0.9 (0.7-1.1cm)Ao Root(2D)2.7 (2.0-3.7cm)LA ESV INDEX (BP)29.14 mL/m2 LVDs3.2 (2.5-4.0cm)LVOT diam1.8 (1.8-2.4cm) IVC diam2.4 cm Deformation Strain Apical 4-20.3 % Apical 2-21.5 % Apical 3-20.8 % Global Strain-20.9 % M-Mode Dimensions EPSS0.4 cm LA (MM)3.6 (1.6-4.0cm) Ao Root(MM)2.7 (2.0-3.7cm) Aortic Valve AoV Vmax1.3 m/Ramon Peak GR6.9 mmHgLVOT Vmax1.1 m/s AoV VTI0.3 mAo Mean GR4.1 mmHgLVOT VTI0.26 m YELITZA (VMAX)2.31 cm2AVA (VTI) 2.1 cm2 Mitral Valve MV E Vmax82.4 cm/sDECEL Lesb320 ms MV A Vmax54.5 cm/sP 1/2 T83 ms E/A ratio1.5MVA (PHT)2.6 cm2 TDI E/E' Medial6.6E/E' Lateral5.6 Medial E' Peak V12.51 cm/sLateral E' Peak V14.81 cm/s Pulmonary Valve PV Vmax0.8 m/sPV VTI0.24 mPV Mean GR1.7 mmHg PV Peak GR2.6 mmHg Tricuspid Valve TR Vmax2.3 m/sRAP (EST) 8 lhDbEUEG61.0 mmHg TR Peak GR23.0 mmHg Left Ventricle The left ventricle is normal size. Normal wall motion There is normal left ventricular wall thickness . LVEF is 60-65%. The left ventricular diastolic function is normal. Right Ventricle The right ventricle is normal size. The right ventricular systolic function is normal. Atria The left atrium size is normal. The right atrium size is normal. Aortic Valve The aortic valve is normal in structure. No aortic regurgitation is present. There is no aortic valvu lar stenosis. Mitral Valve The mitral valve is normal in structure. There is no mitral valve regurgitation noted. There is no mi tral valve stenosis. Tricuspid Valve The tricuspid valve is normal in structure. There is trace tricuspid valve regurgitation noted. Pulmonic Valve The pulmonary valve is normal in structure. There is no pulmonic valvular regurgitation. Great Vessels The aortic root is normal in size. The IVC is dilated and collapses >50% with inspiration. Pericardium There is no pericardial effusion. Conclusion LVEF is 60-65%. The left ventricular diastolic function is normal. There is normal left ventricular wall thickness. The left ventricle is normal size. Normal wall motion There is no pericardial effusion. Normal pulmonary pressure Study quality was adequate
--- NOTE | 2024-08-29 18:53 | NUR ---
PT DECIDED TO GO HOME SHE HAS YOUNG CHILDREN. SHE SIGNED THE AMA FORM. HER VS WNL.IV REMOVED FROM [facility].SHE LEFT ACCOMPANIED BY HER . Addendum: 08/29/24 at 1906 by MICHAEL SHE TALKED TO BOTH MYSELF AND CHARGE NURSE VALERIA ABOUT HER WISH TO GO HOME TO HER KIDS.REASSURED HER THAT SHE CAN COME BACK ANY TIME SHE NEEDS TO.
[2024-08-29 18:59] VITALS: BP 112/68; PULSE 68; RESP 15; TEMP 98.3; O2SAT 98
--- NOTE | 2024-08-29 19:12 | NUR ---
DR BULLARD MADE AWARE OF AMA.
[2024-08-29] MEDS ORDERED: FAMOTIDINE 20MG VIAL IV SCH (21:00)
== END 2024-08-29 18:53 | disposition left against medical advice (07) ==
LOC: EDH 08:36 → EDHIP 08:37
PROVIDERS: ADMIT Internal Medicine; ATTEND Internal Medicine
DX: R07.89 Other chest pain (principal); I25.10 Atherosclerotic heart disease of native coronary artery without angina pectoris; I10 Essential (primary) hypertension; F32.A Depression, unspecified; E11.9 Type 2 diabetes mellitus without complications; Z98.891 History of uterine scar from previous surgery; Z79.899 Other long term (current) drug therapy
CPT/HCPCS: 96374; 96375; 99284; 83036; 84443; 82550; 83735; 84484 ×3; 80048; 83880; 80305; 85025; 85378; 85610; 85730; 84439; 86140; 81003; 81025; 36415; 71045; 93306; 93356; 93005; 84145; G0378 ×4; J2405; J1885; J2470